=== PATIENT | female | born 1945 | race Caucasian/White ===

== ENCOUNTER 2025-02-08 12:51 | Outpatient (AMB) | payer MEDICARE, SELFPAY ==
--- NOTE | 2025-02-08 12:54 | MHC.OFFVIS ---
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 Patient is a pleasant 79-year-old female with prior cardiac catheterization 2021, from the reports appears she had NSTEMI although I do not find any cardiac catheterization report in the old records. However patient says she never underwent interventions at that time but was given isosorbide which she has continued to use since then. She has not chest pain discomfort. She then ended up having symptoms of feeling like anxiety with rapid heart rate and chest tightness and ended up going to [facility]. She says when she started developing symptoms her co-resident said that heart rate was really high and advised her to go to the emergency room. On route she was noted to be rapid heart rate in the emergency room diagnose with atrial flutter. Unfortunately I do not have a copy of her EKGs to suggest whether this was a typical flutter. Patient prior to getting any medicines converted to sinus rhythm. She was then started on Eliquis 5 mg b.i.d.. No rate control medications has been started. She says since then she has notice some symptoms similar to that but not very prolonged palpitations. She is not sure if she is having recurrent episodes of atrial flutter or not. She denies any orthopnea, PND, leg edema. She is generally otherwise active but her lower spine and lumbar pain limits her activity level. She denies any exertional chest pain. No lightheadedness, syncope. [facility] Medical History Paroxysmal atrial flutter Surgical History Hx of cardiac cath Family History Father CAD (coronary artery disease) Mother No problems noted. Brother Sudden cardiac arrest Pacemaker Social History Patient Tobacco Use Status: Former Tobacco user Review of Systems Const Denies chills, Reports daytime sleepiness, Reports fatigue, Denies fever(s), Denies frequent falls, Denies poor appetite, Reports snoring, Reports stops breathing during sleep, Denies weakness, Denies weight gain and Denies weight loss Eyes Denies loss of vision ENT Denies dizziness and Reports hearing loss Card Reports chest pain, Denies claudication, Denies leg edema, Denies lightheadedness, Reports palpitations, Denies dyspnea, Denies dyspnea on exertion and Denies orthopnea Resp Denies cough, Denies excessive phlegm production, Denies dyspnea, Denies dyspnea on exertion, Reports snoring and Denies wheezing GI Denies abdominal pain, Denies hematochezia, Denies change in bowel habits, Denies nausea and Denies vomiting Denies urinary frequency and Denies dysuria Musc Denies arthralgias, Denies muscle weakness and Denies numbness Skin/Breast Denies nail changes and Denies rash Neuro Denies Abnormal speech present, Denies dizziness, Denies frequent falls, Denies loss of vision, Denies memory loss, Denies numbness and Denies weakness Psych Reports depression and Denies memory loss Endo Reports fatigue and Reports palpitations Ned/Lymph Reports easy bruising and Reports other (anemia) Aller/Immun Denies wheezing Physical Exam Vital Signs: Last Vital Signs Pulse 59 02/08/25 12:58 BP 120/74 02/08/25 12:58 BMI result Body Mass Index 30.3 Const General: cooperative, comfortable, no acute distress, well developed, alert, awake, Physically active and well groomed Nutritional Appearance: overweight Orientation/consciousness: patient oriented x3 Limitations: no limitations HEENT Head: Yes normocephalic and Yes atraumatic Neck Neck: Yes trachea midline, Yes supple and Yes no JVD Resp Effort & Inspection: normal respiratory effort Auscultation: clear to auscultation bilaterally Cardio Jugular venous distension: no JVD Rate: regular rate Rhythm: regular rhythm Heart sounds: S1 normal heart sound present, S2 normal heart sound present, no click, no gallops, no murmurs and no rubs GI Auscultation: normal bowel sounds Skin General skin exam: no rashes or lesions noted Neuro General: patient oriented x3 and no focal motor deficits Speech: No Abnormal speech present Extrem General: Yes no clubbing, cyanosis or edema Psych Appearance: grossly normal Office Procedures EKG Details: EKG shows normal sinus rhythm with left axis deviation with low-voltage QRS with poor R-wave progression most likely due to lead placement [id number], Complete Assessment & Plan Assessment & Plan (1) Paroxysmal atrial flutter: Code(s): I48.92 - Unspecified atrial flutter Category: Medical Plan: New onset paroxysmal atrial flutter with intermittent symptoms not sure whether these are related to flutter or not. Patient was highly symptomatic with episodes of chest pressure associated with her flutter. Will need to evaluate for underlying structural heart disease including myocardial ischemia as well as cardiac structure and function as well as biatrial chamber size to assess further treatment plan. Also need to obtain her old EKGs to assess for the nature of atrial flutter. If it is typical atrial flutter would be more amenable to ablation in the future and this was discussed with her. At this point time I would suggest her to continue with Eliquis therapy with CHADSVASC score of 3-4. Her prior history and cardiac catheterization not available to me and I am not sure whether she needs to be on still operator gin isosorbide therapy. Will review the cardiac catheterization that was done in his higher to further guide treatment from that perspective. Will also suggest a 14 day Holter monitor to assess for recurrent atrial flutter that might also need further intervention with rhythm control approach with either antiarrhythmic drug and/or ablation. This was discussed with her. Continue thyroid maintenance therapy. Encouraged to avoid stimulants. Encouraged to increase activity level as tolerated. I did advise her to participate in his phone based EKG device to help discern her symptoms. Will follow up in the clinic in 2 months time, sooner PRN. Thank you for allowing me to partake in her care Orders: Orders CA echo transthoracic complete Today I48.92 - Unspecified atrial flutter CA lexiscan stress w casper Today I48.92 - Unspecified atrial flutter, R07.89 - Other chest pain ECG 14 day holter monitor Today I48.92 - Unspecified atrial flutter NM cardiolite stress test 2 Weeks I48.92 - Unspecified atrial flutter, R07.9 - Chest pain, unspecified Coding Level of Care Code New Pt Level 4 (87959) Complex EM visit Add On G2211 Diagnoses Paroxysmal atrial flutter I48.92 CPT Codes EKG - CPT: 84765-[id number], Complete ([id number])
[2025-02-08 12:58] VITALS: BP 120/74; PULSE 59; BMI 30.3
== END 2025-02-08 13:51 | disposition home or self-care (01) ==
PROVIDERS: PCP Family Medicine; Visit Provider Internal Medicine Cardiovascular Disease
DX: I48.92 Unspecified atrial flutter (principal)
CPT/HCPCS: 93010; 99204; G2211

== ENCOUNTER → 2025-02-08 12:51 | Outpatient (BNVA) | payer MEDICARE, SELFPAY | PROVIDERS: PCP Family Medicine; Visit Provider Internal Medicine Cardiovascular Disease | DX: I48.92 Unspecified atrial flutter (principal); Z87.891 Personal history of nicotine dependence | CPT/HCPCS: 93005; 99202 ==